=== PATIENT | male | born 1965 | race Caucasian/White ===

== ENCOUNTER 2021-06-30 05:53 | Emergency (ER) | payer OTHER ==
[~2021-06-30 05:53] MED LIST: ACETAMINOPHEN-1 EAC2 PO; MELOXICAM15 MG PO
[2021-06-30 06:19] LABS: BASOPHIL 0.9 % (0-2); HCT 52.5 % (42.0-52.0); HGB 17.7 g/dl (13.2-18.0); LYMPHOCYTE 20.7 % (15-48); MCH 31.4 pg (25.0-31.0); MCHC 33.7 g/dL (32.0-36.0); MCV 93.3 fL (78.0-100.0); MPV 9.9 fL (6.0-9.5); NEUTROPHIL 65.7 % (41-80); NRBC 0; PLT 277 K/uL (150-400); RBC 5.63 M/uL (4.70-6.00); WBC 12.9 K/uL (4.0-10.5)
[2021-06-30 06:29] LABS: INR 1.06 (0.9-1.2); PROTHROMBIN TIME 13.2 SECONDS (11.8-13.4); PTT 29.4 SECONDS (24.4-34.7)
[2021-06-30 06:31] LABS: D-DIMER 0.41 ug/mLFEU (0.00-0.41)
[2021-06-30 06:37] LABS: ALBUMIN 4.3 g/dL (3.4-5.0); BILIRUBIN - TOTAL 0.5 mg/dL (0.2-1.0); BUN/CREAT RATIO (CALC) 13.6 RATIO; CREATININE 1.1 mg/dL (0.67-1.17); GLOBULIN (CALCULATION) 3.6 g/dL; POTASSIUM 4.6 mmol/L (3.5-5.1); TOTAL PROTEIN 7.9 g/dL (6.4-8.2)
== END 2021-06-30 06:57 | disposition other institution (70) ==
LOC: FER 05:53
PROVIDERS: Emergency Medicine Emergency Medical Services
DX: I21.19 ST elevation (STEMI) myocardial infarction involving other coronary artery of inferior wall (principal); E11.9 Type 2 diabetes mellitus without complications; I10 Essential (primary) hypertension; Z79.84 Long term (current) use of oral hypoglycemic drugs; Z90.49 Acquired absence of other specified parts of digestive tract
CPT/HCPCS: 36415; 71045; 80053; 84484; 85025; 85379; 85610; 85730; 93005; J1644; J2270; J2405; J7030